=== PATIENT | female | born 1945 | race Caucasian/White ===

== ENCOUNTER 2017-05-13 18:07 | Emergency (ER) | payer MEDICARE, MEDICAID ==
[~2017-05-13] VITALS: Ht 165.1 cm; Wt 135.6 kg
--- NOTE | 2017-05-13 18:07 | NUR ---
BIB [facility] FROM HOME, WORSENING BACK PAIN, DX W/ SCIATICA
[2017-05-13] MEDS ORDERED: CAN'T RECALL (18:14)
[2017-05-13] MEDS ORDERED: ACET-868 PO (18:23)
[2017-05-13] MEDS ORDERED: IBUP-1481 PO (18:23)
--- NOTE | 2017-05-13 18:30 | NUR ---
DR BERKOWITZ AT BEDSIDE FOR EVAL
[2017-05-13] MEDS ORDERED: KETOROLAC TROMETHAMINE INJ 60 MG/2 ML VIAL IM ONE (18:40)
--- NOTE | 2017-05-13 18:40 | NUR ---
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
[2017-05-13] MEDS: KETOROLAC TROMETHAMINE INJ 60 MG/2 ML VIAL IM ONE (18:43)
[2017-05-13 18:53] LABS: BASOPHILS # (AUTO) 0.1 /CMM (0.0-0.2); BASOPHILS % (AUTO) 1.4 % (0.0-2.0); EOSINOPHILS # (AUTO) 0.5 /CMM (0.0-0.7); EOSINOPHILS % (AUTO) 5.4 % (0.0-6.0); HEMATOCRIT 36 % (33-45); LYMPHOCYTES # (AUTO) 2.2 /CMM (0.8-4.8); LYMPHOCYTES % (AUTO) 23.9 % (20.0-44.0); MEAN CORPUSCULAR HEMOGLOBIN 27 PG (26.0-33.0); MEAN CORPUSCULAR HGB CONC 33 g/dl (31.0-36.0); MEAN CORPUSCULAR VOLUME 82 fL (82-100); MONOCYTES # (AUTO) 0.5 /CMM (0.1-1.30); MONOCYTES % (AUTO) 5.8 % (2.0-12.0); NEUTROPHILS # (AUTO) 6.1 /CMM (1.8-8.9); NEUTROPHILS % (AUTO) 63.5 % (43.0-81.0); PLATELET COUNT (AUTO) 341 /CMM (150-450); RED BLOOD CELL COUNT(AUTO) 4.41 MIL/uL (4.0-5.2); WHITE BLOOD COUNT (AUTO) 9.4 K/uL (4.3-11.0)
[2017-05-13 18:56] LABS: CALCIUM, SERUM 8.3 mg/dL (8.5-10.1); CREATININE 1.9 mg/dL (0.6-1.3); POTASSIUM 3.7 mmol/L (3.5-5.1)
--- NOTE | 2017-05-13 18:58 | NUR ---
[employer]ACHINE [employer]ER AT BEDSIDE
[2017-05-13 19:07] LABS: ALBUMIN 3.2 g/dL (3.4-5.0); BILIRUBIN,TOTAL 0.2 mg/dL (0.2-1.0); TOTAL PROTEIN, SERUM 7.3 g/dL (6.4-8.2)
--- NOTE | 2017-05-13 19:54 | NUR ---
Patient discharged to home in stable condition. Written and verbal after care instructions given. Patient verbalizes understanding of instruction. ambulatory with a steady gait noted. pt [id number] no acute distress noted, resp even and unlabored.
[2017-05-13 19:55] VITALS: BP 149/78
== END 2017-05-13 19:56 | disposition home or self-care (01) ==
LOC: EDBD 18:11 → ER 18:11
DX: S86.911A Strain of unspecified muscle(s) and tendon(s) at lower leg level, right leg, initial encounter (principal); S39.012A Strain of muscle, fascia and tendon of lower back, initial encounter; R60.0 Localized edema; E66.9 Obesity, unspecified; N28.9 Disorder of kidney and ureter, unspecified; M54.31 Sciatica, right side; Z88.0 Allergy status to penicillin; X58.XXXA Exposure to other specified factors, initial encounter; Y93.89 Activity, other specified; Y92.89 Other specified places as the place of occurrence of the external cause; Y99.9 Unspecified external cause status
CPT/HCPCS: 36415; 71010-TC; 73502; 80053-TC; 85025-TC; 93971-TC; A4606; J1885; Z7610

== ENCOUNTER 2020-08-11 10:07 | Emergency (ER) | payer MEDICARE, OTHER ==
[~2020-08-11] VITALS: Ht 165.1 cm; Wt 122.0 kg
[~2020-08-11 10:07] MED LIST: ACET-868 PO; IBUP-1953 PO
--- NOTE | 2020-08-11 10:15 | NUR ---
PT LUCINDA FROM HOME C/O R HIP PAIN, PT STATED THAT SHE HAD A FALL. VS CHECKED. AWAITING MD URBINA.
[2020-08-11] MEDS ORDERED: HYDROCODONE/APAP 10/325MG TABLET ONE (10:29)
[2020-08-11] MEDS ORDERED: HYDROCODONE/APAP 10/325MG TABLET PO ONE (10:30)
[2020-08-11 10:37] LABS: BASOPHILS # (AUTO) 0.1 /CMM (0.0-0.2); BASOPHILS % (AUTO) 1.1 % (0.0-2.0); EOSINOPHILS % (AUTO) 3.8 % (0.0-6.0); HEMATOCRIT 40 % (33-45); HEMOGLOBIN 12.9 g/dL (11.5-14.8); LYMPHOCYTES # (AUTO) 1.6 /CMM (0.8-4.8); LYMPHOCYTES % (AUTO) 16.2 % (20.0-44.0); MEAN CORPUSCULAR HGB CONC 32 g/dl (31.0-36.0); MEAN CORPUSCULAR VOLUME 86 fL (82-100); MONOCYTES # (AUTO) 0.7 /CMM (0.1-1.30); MONOCYTES % (AUTO) 7.6 % (2.0-12.0); NEUTROPHILS # (AUTO) 6.9 /CMM (1.8-8.9); NEUTROPHILS % (AUTO) 71.3 % (43.0-81.0); PLATELET COUNT (AUTO) 329 /CMM (150-450); RED BLOOD CELL COUNT(AUTO) 4.67 MIL/uL (4.0-5.2); WHITE BLOOD COUNT (AUTO) 9.7 K/uL (4.3-11.0)
[2020-08-11 10:46] LABS: CALCIUM, SERUM 8.7 mg/dL (8.5-10.1); CREATININE 0.9 mg/dL (0.6-1.3); POTASSIUM 3.4 mmol/L (3.5-5.1)
[2020-08-11] MEDS ORDERED: FURO20TA4 PO (11:02)
[2020-08-11] MEDS ORDERED: CHLO25TA2 PO (11:02)
[2020-08-11] MEDS ORDERED: CITA10TA9 PO (11:02)
[2020-08-11] MEDS ORDERED: TRAZ-252 PO (11:02)
[2020-08-11] MEDS ORDERED: HYDR-3972 PO (11:02)
--- NOTE | 2020-08-11 11:25 | NUR ---
[facility]SPORT CALLED [facility] ETA 1200 PER JOSELINE.
[2020-08-11 12:04] VITALS: BP 116/72
--- NOTE | 2020-08-11 12:04 | NUR ---
Patient discharged to home in stable condition. Written and verbal after care instructions given. Patient verbalizes understanding of instruction.
== END 2020-08-11 12:05 | disposition home or self-care (01) ==
LOC: ER 10:21
DX: L03.116 Cellulitis of left lower limb (principal); L03.115 Cellulitis of right lower limb; M25.551 Pain in right hip; E66.8 Other obesity; Z68.42 Body mass index [BMI] 45.0-49.9, adult; Z88.0 Allergy status to penicillin; Z60.2 Problems related to living alone; Z79.899 Other long term (current) drug therapy; W01.0XXA Fall on same level from slipping, tripping and stumbling without subsequent striking against object, initial encounter; Y93.01 Activity, walking, marching and hiking; Y92.091 Bathroom in other non-institutional residence as the place of occurrence of the external cause; Y99.8 Other external cause status
CPT/HCPCS: 36415; 73502; 80048-TC; 83605-TC; 85025-TC